=== PATIENT | male | born 1975 | race Caucasian/White ===

== ENCOUNTER → 2020-03-13 08:46 | Outpatient (BNVA) | payer OTHER, SELFPAY | PROVIDERS: Family Provider Nurse Practitioner Family; PCP Nurse Practitioner Family; Visit Provider Registered Nurse | DX: I10 Essential (primary) hypertension (principal); E78.5 Hyperlipidemia, unspecified | CPT/HCPCS: 80053; 80061 ==

== ENCOUNTER → 2021-03-05 08:58 | Outpatient (BNVA) | payer OTHER, SELFPAY | PROVIDERS: Family Provider Nurse Practitioner Family; PCP Nurse Practitioner Family; Visit Provider Registered Nurse | DX: E78.5 Hyperlipidemia, unspecified (principal); F41.8 Other specified anxiety disorders; I10 Essential (primary) hypertension; Z71.89 Other specified counseling; L72.11 Pilar cyst; L98.9 Disorder of the skin and subcutaneous tissue, unspecified | CPT/HCPCS: 80053; 80061; 84402; 84403; 85025 ==

== ENCOUNTER → 2021-03-12 09:27 | Outpatient (BNVA) | payer OTHER, SELFPAY | PROVIDERS: Family Provider Nurse Practitioner Family; PCP Registered Nurse; Visit Provider Registered Nurse | DX: L98.9 Disorder of the skin and subcutaneous tissue, unspecified (principal) | CPT/HCPCS: 88305 ==

== ENCOUNTER 2021-04-05 10:25 | Outpatient (CLI) | payer OTHER, SELFPAY ==
[2021-04-05 10:40] VITALS: BP 117/73; PULSE 11; RESP 18; TEMP 36.7; O2SAT 94; BMI 28.2
[2021-04-05 11:05] VITALS: BP 112/86; PULSE 68; RESP 18; O2SAT 92
[2021-04-05 12:05] VITALS: BP 123/78; PULSE 100; RESP 17; TEMP 38.4; O2SAT 94
== END 2021-04-05 10:26 | disposition home or self-care (01) ==
LOC: OPS 10:30
PROVIDERS: PCP Registered Nurse; Visit Provider Nurse Practitioner Family
DX: U07.1 COVID-19 (principal)
CPT/HCPCS: 96365

== ENCOUNTER → 2021-04-21 09:42 | Outpatient (BNVA) | payer OTHER, SELFPAY | PROVIDERS: PCP Registered Nurse; Referring Provider Registered Nurse; Visit Provider Urology | DX: E29.1 Testicular hypofunction (principal); R79.89 Other specified abnormal findings of blood chemistry; Z12.5 Encounter for screening for malignant neoplasm of prostate | CPT/HCPCS: 81003; 83001; 83002; 84146; 84403; G0103 ==

== ENCOUNTER → 2022-03-11 08:30 | Outpatient (BNVA) | payer OTHER, SELFPAY | PROVIDERS: PCP Registered Nurse; Visit Provider Registered Nurse | DX: I10 Essential (primary) hypertension (principal); E78.5 Hyperlipidemia, unspecified; R79.89 Other specified abnormal findings of blood chemistry; Z00.00 Encounter for general adult medical examination without abnormal findings; Z71.82 Exercise counseling; Z71.3 Dietary counseling and surveillance | CPT/HCPCS: 80053; 80061; 84402; 84403; 85025 ==

== ENCOUNTER → 2023-03-31 10:32 | Outpatient (BNVA) | payer OTHER, SELFPAY | PROVIDERS: PCP Registered Nurse; Visit Provider Registered Nurse | DX: I10 Essential (primary) hypertension (principal); Z12.5 Encounter for screening for malignant neoplasm of prostate; R79.89 Other specified abnormal findings of blood chemistry; E78.5 Hyperlipidemia, unspecified | CPT/HCPCS: 80053; 80061; 84402; 84403; 85025; G0103 ==

== ENCOUNTER → 2024-04-09 11:11 | Outpatient (BNVA) | payer OTHER, SELFPAY | PROVIDERS: PCP Registered Nurse; Visit Provider Registered Nurse | DX: Z13.6 Encounter for screening for cardiovascular disorders (principal); I10 Essential (primary) hypertension; E78.5 Hyperlipidemia, unspecified; Z13.1 Encounter for screening for diabetes mellitus | CPT/HCPCS: 80053; 80061; 83036; 85025 ==

== ENCOUNTER → 2025-05-16 09:09 | Outpatient (BNVA) | payer OTHER, SELFPAY | PROVIDERS: PCP Registered Nurse; Visit Provider Registered Nurse | DX: E29.1 Testicular hypofunction (principal); Z12.5 Encounter for screening for malignant neoplasm of prostate; Z13.6 Encounter for screening for cardiovascular disorders | CPT/HCPCS: 80053; 80061; 84403; 85025; G0103 ==